=== PATIENT | male | born 1965 | race Caucasian/White ===

== ENCOUNTER 2017-03-25 16:11 | Inpatient (IN) | payer OTHER ==
[~2017-03-25] VITALS: Ht 170.2 cm; Wt 106.3 kg
[~2017-03-25 16:11] MED LIST: ATEN-173 PO; ATOR-26 PO; FLV1 PO; FLX5 PO; LISI-461 PO; OXYC-57 PO; SUCR1TAB PO; THM100 PO
[2017-03-25] MEDS ORDERED: KETOROLAC TROMETHAMINE 30 MG/ML VIAL IV STA (16:32)
[2017-03-25] MEDS ORDERED: ESCI1TAB10 PO (16:40)
[2017-03-25] MEDS ORDERED: ASPI81TA28 PO (16:40)
[2017-03-25] MEDS ORDERED: LISI-725 PO (16:40)
[2017-03-25] MEDS ORDERED: CHOL2000 PO (16:40)
[2017-03-25 16:53] LABS: BASO % 0.6 %; BASO ABS # 0.04 K/uL (0-0.2); COMPLETE YES; HEMATOCRIT 48.2 % (42-52); IG% 0.3 %; LYMPH % 17.6 %; LYMPH ABS # 1.19 K/uL (1.2-3.4); MEAN CELL VOLUME 89.9 fL (80-100); MEAN CORPUSCULAR HGB CONC 34.4 g/dl (32-36); MEAN PLATELET VOLUME 10.3 fL (7.4-10.4); MONO % 8.6 %; NEUT % 71.9 %; PLATELET COUNT 235 K/uL (130-400); RED BLOOD COUNT 5.36 M/uL (4.7-6.1); WHITE BLOOD COUNT 6.78 K/uL (4.8-10.8)
[2017-03-25 17:10] LABS: BUN/CREATININE RATIO 13.6 (10-20); CALCIUM 8.9 mg/dl (8.5-10.1); CREATININE 0.98 mg/dl (0.60-1.40); POTASSIUM 4.2 mmol/L (3.5-5.1)
--- NOTE | 2017-03-25 17:31 | DIAGNOSTIC IMAGING REPORT ---
LUMBAR SPINE CT CT DOSE: 1028.89 mGy.cm HISTORY: Pain LBP eval for fx TECHNIQUE: Multiaxial CT images of the lumbar spine were performed and reformatted in the sagittal and coronal plane without the use of contrast. COMPARISON: 09/16/2014 FINDINGS: Vertebral body stature is normal. No evidence for compression deformity. Intervertebral this are well-preserved. Moderate expansion of several neural nerve root and neural foraminal regions bilaterally. 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 IMPRESSION: No acute process. Chronic changes which have been described previously and appear unchanged. Electronically signed by: Morro Huston M.D. 03/25/2017 5:29 PM Dictated Date/Time: 03/25/2017 5:27 PM
[2017-03-25] MEDS ORDERED: MoRPHine SULFATE 4 MG/ML 1 ML CARP\\VIAL IV STA (17:40)
[2017-03-25] MEDS ORDERED: ONDANSETRON INJ 2 MG/ML 2 ML VIAL IV STA (17:40)
[2017-03-25] MEDS ORDERED: LIDODERM (LIDOCAINE) PATCH 5% TD ONE (19:17)
[2017-03-25 19:20] VITALS: Ht 170.2 cm; Wt 106.3 kg
[2017-03-25] MEDS ORDERED: ACETAMINOPHEN 325 MG TAB PO PRN (19:30)
[2017-03-25] MEDS ORDERED: SODIUM CHLORIDE 0.9% 1000ML 1,000 ML IV SCH (19:30)
[2017-03-25] MEDS ORDERED: ONDANSETRON INJ 2 MG/ML 2 ML VIAL IV PRN (19:30)
[2017-03-25] MEDS ORDERED: KETOROLAC TROMETHAMINE 30 MG/ML VIAL IV PRN (19:30)
[2017-03-25] MEDS ORDERED: MoRPHine SULFATE 4 MG/ML 1 ML CARP\\VIAL IV PRN (19:30)
--- NOTE | 2017-03-25 19:44 | History and Physical ---
History & Physical Date & Time of Service: Mar 25, 2017 at 19:31 Chief Complaint: Back Pain Primary Care Physician: No Doctor, Assigned History of Present Illness Source: patient, family, clinic records, hospital records 51 year old male with history of Hypertension, and other problems noted below presenting with sudden onset back pain. Patient was at his baseline until this afternoon. After cleaning the house with vacuum and mopping, patient had a sudden onset low back pain- severe, to the point that he had to sit down and crawl to a chair. Pain is non radiating, no leg weakness/numbness, incontinence, worse with movement. The pain persisted and patient could not ambulate at all due to pain, hence ambulance was called. At the ER, CT spine did not show any acute changes. Patient was given Toradol and Morphine IV but still without significant relief. On exam, patient alert, pleasant. Denies .lower back pain when he is still but would have severe pain with slight movement. No chest pain, dyspnea, palpitations, dizziness. Denies other symptoms. Family History Father heart disease Social History Smoking Status: Former Smoker Smokeless Tobacco Use: No Drug Use: none Marital Status: Housing status: lives with family Occupational Status: employed Multi-Drug Resistant Organisms History of MDRO: No Allergies Coded Allergies: No Known Allergies (Unverified , 03/25/17) Home Medications Scheduled Aspirin (Aspirin Ec), 81 MG PO DAILY Atenolol (Tenormin), 25 MG PO HS Atorvastatin (Lipitor), 80 MG PO HS Cholecalciferol (Vitamin D3), 5,000 INTER.UNIT PO DAILY Escitalopram Oxalate (Lexapro), 20 MG PO HS Lisinopril (Zestril), 20 MG PO DAILY Review of Systems Constitutional- no fever; no weight loss Eyes- no acute visual changes ENT- no sinus drainage; no pharyngitis Pulmonary- no cough, no wheezing, no shortness of breath Cardiac- no chest pain, no palpitations, no orthopnea, no dependent edema GI- no nausea, no vomiting, no diarrhea, no melena, no hematochezia - no dysuria, no hematuria Musculoskeletal- no arthralgias, no myalgias Derm- no rashes, no new skin lesions, no changing skin lesions Hematologic- no unusual bruising, no unusual bleeding Lymphatics- no adenopathy Endocrine- no polyuria or polydipsia; no heat or cold intolerance Neuro- no headaches, no focal neurologic symptoms Psych- no anxiety, no depression Physical Exam Vital Signs Date Time Temp Pulse Resp B/P (MAP) Pulse Ox O2 Delivery O2 Flow Rate FiO2 03/25/17 18:51 66 18 146/89 97 Room Air 03/25/17 17:45 65 20 137/88 97 Room Air 03/25/17 16:36 64 03/25/17 16:19 36.8 68 20 145/99 97 Room Air General Appearance: WD/WN, no apparent distress Head: normocephalic, atraumatic Eyes: normal inspection, EOMI, sclerae normal ENT: normal ENT inspection, hearing grossly normal, pharynx normal Neck: supple, no adenopathy, thyroid normal, no JVD, trachea midline Respiratory/Chest: chest non-tender, lungs clear, normal breath sounds, no respiratory distress, no accessory muscle use Cardiovascular: regular rate, rhythm, no edema, no JVD, no murmur Abdomen/GI: normal bowel sounds, non tender, soft Back: + pertinent finding (no examined as patient was having severe pain with minimal movement) Extremities/Musculoskelatal: normal inspection, no calf tenderness, normal capillary refill, no pedal edema 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 nml as tested, no motor/sensory deficits, alert, normal mood/affect, oriented x 3 Skin: normal color, warm/dry, no rash Lymphatic: no adenopathy Diagnostics Laboratory Results Results Past 24 Hours Test 03/25/17 16:40 Range/Units White Blood Count 6.78 4.8-10.8 K/uL Red Blood Count 5.36 4.7-6.1 M/uL Hemoglobin 16.6 14.0-18.0 g/dL Hematocrit 48.2 42-52 % Mean Corpuscular Volume 89.9 80-100 fL Mean Corpuscular Hemoglobin 31.0 25-34 pg Mean Corpuscular Hemoglobin Concent 34.4 32-36 g/dl Platelet Count 235 130-400 K/uL Mean Platelet Volume 10.3 7.4-10.4 fL Neutrophils (%) (Auto) 71.9 % Lymphocytes (%) (Auto) 17.6 % Monocytes (%) (Auto) 8.6 % Eosinophils (%) (Auto) 1.0 % Basophils (%) (Auto) 0.6 % Neutrophils # (Auto) 4.88 1.4-6.5 K/uL Lymphocytes # (Auto) 1.19 1.2-3.4 K/uL Monocytes # (Auto) 0.58 0.11-0.59 K/uL Eosinophils # (Auto) 0.07 0-0.5 K/uL Basophils # (Auto) 0.04 0-0.2 K/uL RDW Standard Deviation 40.5 36.4-46.3 fL RDW Coefficient of Variation 12.3 11.5-14.5 % Immature Granulocyte % (Auto) 0.3 % Immature Granulocyte # (Auto) 0.02 0.00-0.02 K/uL Sodium Level 139 136-145 mmol/L Potassium Level 4.2 3.5-5.1 mmol/L Chloride Level 105 98-107 mmol/L Carbon Dioxide Level 25 21-32 mmol/L Anion Gap 9.0 3-11 mmol/L Blood Urea Nitrogen 13 7-18 mg/dl Creatinine 0.98 0.60-1.40 mg/dl Est Creatinine Clear Calc Drug Dose 101.3 ml/min Estimated GFR () 101.6 Estimated GFR (Non- 87.7 BUN/Creatinine Ratio 13.6 10-20 Random Glucose 109 70-99 mg/dl Calcium Level 8.9 8.5-10.1 mg/dl Diagnostic Radiology CT spine IMPRESSION: No acute process. Chronic changes which have been described previously and appear unchanged. Impression Assessment and Plan 51 year old male with history of Hypertension, and other problems noted below presenting with sudden onset back pain. ACUTE LOW BACK PAIN -- was admitted in 2015 for similar presentation -- possible muscular strain, vs. radiculopathy, herniated disc -- MRI lumbar spine ordered -- Lidoderm patch PRN Flexeril, Toradol, Morphine IV fluids PT/OT -- will consult Ortho Spine- Dr. Arias who saw the patient in 2015 during his last admission HYPERTENSION - on Atenolol, Lisinopril DEPRESSION HISTORY - on Escitalopram DVT prophylaxis SCDs for now Full code per patient Dispo pending PT/OT eval ordered lives with follows with Dr. Pittman for PCP VTE Prophylaxis VTE Risk Assessment Done? Y/N: Yes Risk Level: Moderate
[2017-03-25 19:45] VITALS: BP 108/74; PULSE 58; TEMP 36.9; O2SAT 96
--- NOTE | 2017-03-25 21:52 | DIAGNOSTIC IMAGING REPORT ---
LUMBAR SPINE MRI HISTORY: Back pain low back pain TECHNIQUE: Multiplanar multisequence MRI of the lumbar spine was performed without the use of contrast. COMPARISON: 09/16/2014 FINDINGS: For the purpose of the report the L5-S1 disc space will be located on axial image 27 of 30. Diffuse enlargement of the exiting nerve roots at all impression all levels of lumbar region. Based on the sagittal images this appearance is similar as compared to the prior study. Considerations include dural ectasia versus neurofibromas at the exiting nerve root levels. Signal characteristics the vertebral bodies are unremarkable. There is mild disc desiccation throughout. L1-L2: Prominence of the exiting nerve roots. No disc herniation. L2-L3: Prominence again the exiting nerve roots. Broad-based bulging disc and a left central position. No change from the prior study. L3-L4: Enlarged exiting nerve roots again similar compared to the prior study. L4-L5: Nerve roots again are enlarged. No change from the prior exam. L5-S1: No change in the prior study. Enlarged exiting nerve roots. IMPRESSION: 1. Soft tissue enlargement of the exiting nerve roots at all levels of the lumbar region. 2. This is consistent with the patient's history of neurofibromatosis, possibly combined with a component of dural ectasia. 3. No change from the prior exam dated 09/16/2014 Electronically signed by: Morro Huston M.D. 03/25/2017 9:50 PM Dictated Date/Time: 03/25/2017 9:44 PM
[2017-03-25] MEDS: ATORVASTATIN 40 MG TAB PO SCH (21:54)
[2017-03-25] MEDS: ESCITALOPRAM OXALATE 20 MG TAB PO SCH (21:55)
[2017-03-25] MEDS: CYCLOBENZAPRINE HCL 5 MG TAB PO PRN (22:35)
[2017-03-25 23:00] VITALS: BP 122/76; PULSE 71; TEMP 37; O2SAT 94
[2017-03-26 06:06] LABS: BASO % 0.7 %; BASO ABS # 0.05 K/uL (0-0.2); COMPLETE YES; EOS % 1.6 %; HEMATOCRIT 45.7 % (42-52); IG% 0.3 %; LYMPH % 22.8 %; LYMPH ABS # 1.67 K/uL (1.2-3.4); MEAN CORPUSCULAR HEMOGLOBIN 30.5 pg (25-34); MEAN CORPUSCULAR HGB CONC 33.5 g/dl (32-36); MEAN PLATELET VOLUME 10.3 fL (7.4-10.4); MONO % 12.7 %; NEUT % 61.9 %; PLATELET COUNT 234 K/uL (130-400); RED BLOOD COUNT 5.02 M/uL (4.7-6.1); WHITE BLOOD COUNT 7.32 K/uL (4.8-10.8)
[2017-03-26 06:37] LABS: BUN/CREATININE RATIO 14.8 (10-20); CALCIUM 8.5 mg/dl (8.5-10.1); POTASSIUM 3.8 mmol/L (3.5-5.1)
[2017-03-26 07:17] VITALS: BP 115/77; PULSE 62; TEMP 37; O2SAT 90
[2017-03-26] MEDS: LIDODERM (LIDOCAINE) PATCH 5% TD SCH ×3 (07:39→12:45)
[2017-03-26] MEDS: LISINOPRIL 20 MG TAB PO SCH (07:40)
--- NOTE | 2017-03-26 08:43 | CONSULTATION REPORT ---
DATE OF CONSULTATION: 03/26/2017 DATE OF CONSULTATION: 03/26/2017. CHIEF COMPLAINT: Lower back pain. HISTORY OF PRESENT ILLNESS: The patient is a 51-year-old male whom we had seen approximately 2 years ago for consultation with a similar episode. Yesterday, he was just mopping the floor in a bedroom, watching it dry and turned causing acute pain in his back to the point he could not stand. They had to call an ambulance to get him out of the house. He was brought to the Emergency Room. He still is having significant amount of pain in the back itself, it is in the mid portion of the lower back. Not going into the buttock or legs. No radiating pain, no electrical shocks, no major injuries that he can recall. He was given medications in the Emergency Room, they are unable to adequately control his pain and he was admitted for pain control. He denies any other numbness, tingling or paresthesias, any change in bladder or bowel function. PAST MEDICAL HISTORY: Significant for hypertension, episodic low back pain. MEDICATIONS: Include aspirin, atenolol, Lipitor, vitamin D, Lexapro, and Zestril. ALLERGIES: He has no listed drug allergies. SOCIAL HISTORY: The patient denies smoking although it is reported he is a former smoker. He is and lives with his family and is employed. REVIEW OF SYSTEMS: Is recorded in the patient's medical history. PHYSICAL EXAMINATION: On exam the patient is alert and oriented, answers questions appropriately. He has difficulties rolling from side to side. Lower extremity motor exam reveals no focal atrophy. Strength and sensation both intact. With range of motion of the hips and knees he has some increased back pain but nothing radiating down the legs, no nerve root tension signs. He has no masses or lesions in the back itself. RADIOGRAPHIC IMAGES: MRI of the lumbar spine performed is available for review. This reveals degenerative disc disease primarily at L5-S1 and to a lesser degree at L2-3. There are no large disc herniations or significant neural foraminal compromise. He does have enlarging of the nerve roots throughout consistent with neurofibromatosis. Compared to his films from 2015 there are very few changes. ASSESSMENT: Acute episode of lower back pain. PLAN: At this point, I would recommend PT/OT, possible muscle relaxers to help keep him comfortable. I believe this will be self-limiting episode and does not need any specific surgical intervention. If over the next 24 hours, things not improved possible pain management consult would be considered. There is no indication for any type of surgical approach at this point. I will review the films with Dr. Arias and make sure there is no difference in opinion. Please contact us with any other concerns.
--- NOTE | 2017-03-26 09:47 | EMERGENCY ROOM VISIT NOTE ---
History Report prepared by José Manuel: Demarcus Malone Under the Supervision of: Dr. Edgar Harkins M.D. First contact with patient: 16:26 Chief Complaint: BACK PAIN Stated Complaint: BACK PAIN History of Present Illness The patient is a 51 year old male who presents to the Emergency Room via EMS with complaints of sharp, mid-lower back pain that began today. He was cleaning his house today which included mopping and vacuuming. All of the sudden, the pain began, and he dropped to the floor. While at rest, the patient does not experience the pain in his back. However, when he moves, he experiences the pain. The pain does not radiate down his legs. He denies any fever, vomiting, abdominal pain, numbness, weakness, or loss of bowel/bladder. He notes that this has happened to him in the past. At that time, he received a CT and MRI scan. He was told that his ganglion fibers were inflamed. He was given antiinflammatories and pain medication. He was given IV Fentanyl en route, and notes some nausea associated with this. He Source of History: patient Onset: today Position: back (lower) Symptom Intensity: mild Quality: sharp Timing: intermittent Modifying Factors (Worsening): movement Modifying Factors (Relieving): rest Associated Symptoms: + nausea, No fevers, No vomiting, No abdominal pain, No urinary symptoms, No weakness, No numbness Review of Systems See HPI for pertinent positives & negatives. A total of 10 systems reviewed and were otherwise negative. Past Medical & Surgical Medical Problems: (1) Back pain (2) Hypertension Nos (3) Neurofibromatosis, Unspecified Family History Omitted secondary to age. Social History Smoking Status: Former Smoker Alcohol Use: occasionally Marital Status: Occupation Status: employed Current/Historical Medications Scheduled Aspirin (Aspirin Ec), 81 MG PO DAILY Atenolol (Tenormin), 25 MG PO HS Atorvastatin (Lipitor), 80 MG PO HS Cholecalciferol (Vitamin D3), 5,000 INTER.UNIT PO DAILY Escitalopram Oxalate (Lexapro), 20 MG PO HS Lisinopril (Zestril), 20 MG PO DAILY Allergies Coded Allergies: No Known Allergies (Unverified , 03/25/17) Physical Exam Vital Signs Date Time Temp Pulse Resp B/P (MAP) Pulse Ox O2 Delivery O2 Flow Rate FiO2 03/25/17 17:45 65 20 137/88 97 Room Air 03/25/17 16:36 64 03/25/17 16:19 36.8 68 20 145/99 97 Room Air Physical Exam Constitutional: Vital signs reviewed. Eyes: Pupils are equal round reactive to light. Conjunctiva are noninjected. ENT: Pharynx is clear without erythema or exudate. Mucous membranes are moist. Neck supple without meningeal signs. Respiratory: Clear to auscultation bilaterally. Breath sounds are equal bilaterally. Cardiovascular: Regular rate and rhythm. No rubs or gallops. GI: Soft, nondistended and nontender. Bowel sounds are present. Musculoskeletal: No peripheral edema. No lower extremity tenderness. Integumentary: No cyanosis. Neurological: The patient is awake and alert. No focal deficits. Motor and sensation intact throughout the lower extremities. Psychiatric: Normal affect. Medical Decision & Procedures ER Provider Diagnostic Interpretation: Radiology results as stated below per my review and the radiologist's interpretation: LUMBAR SPINE CT CT DOSE: 1028.89 mGy.cm HISTORY: Pain LBP eval for fx TECHNIQUE: Multiaxial CT images of the lumbar spine were performed and reformatted in the sagittal and coronal plane without the use of contrast. COMPARISON: 09/16/2014 FINDINGS: Vertebral body stature is normal. No evidence for compression deformity. Intervertebral this are well-preserved. Moderate expansion of several neural nerve root and neural foraminal regions bilaterally. 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 IMPRESSION: No acute process. Chronic changes which have been described previously and appear unchanged. Electronically signed by: Morro Huston M.D. 03/25/2017 5:29 PM Dictated Date/Time: 03/25/2017 5:27 PM Laboratory Results Laboratory results as reviewed by me. Medications Administered Medications (Trade) Dose Ordered Sig/Oracio Route Start Time Stop Time Status Last Admin Dose Admin Ketorolac Tromethamine (Toradol Inj) 10 mg NOW STAT IV 03/25/17 16:32 03/25/17 16:34 DC 03/25/17 16:57 10 MG Morphine Sulfate (MoRPHine SULFATE INJ) 4 mg NOW STAT IV 03/25/17 17:40 03/25/17 17:41 DC 03/25/17 17:45 4 MG Ondansetron HCl (Zofran Inj) 4 mg NOW STAT IV 03/25/17 17:40 03/25/17 17:41 DC 03/25/17 17:45 4 MG ED Course 1626: The patient was evaluated in room C10. A complete history and physical exam was performed. 163: Ordered Toradol Inj 10 mg IV 1738: I reevaluated the patient at this time. He does not experience the pain as long as he stays still, but with slight movement, the pain is exacerbated. 1740: Ordered Zofran Inj 4 mg IV, Morphine Sulfate 4 mg IV 1759: The shoe caser was unable to place the patient into a rehabilitation center. We will be paging [facility] for further management. 180: I spoke with Dr. Yosef Garsia Hospitalist, about the patient's case. They will be evaluating them for further care. Medical Decision This is a 51-year-old male who presents with low back pain. Differential diagnosis includes lumbar disc disease, strain, spinal stenosis, cauda equina syndrome, pathologic fracture. I did perform a limited focused review of portions of the patient's old chart on the electronic medical record. The patient had a MRI of his back in 2013. It showed that he had disc protrusions at L2 and L3. Blood Pressure Screening: Patient was found to have an elevated blood pressure and was referred to their primary doctor for recheck and further treatment. Medication Reconciliation: I attest that I have personally reviewed the patient' s current medication list. I did evaluate the patient as noted above. The patient has a history of prior intervertebral disc disease. He has had similar pain in the past. He denies any trauma today. He states that his pain is improved after receiving IV fentanyl from the ambulance crew. He is neurologically intact and has no signs of spinal cord involvement or cauda equina syndrome. He states that his pain is only present if he tries to move. I did treat him with IV Toradol. I did order and review the patient's blood work as noted in the electronic medical record. I did order a CT of the lumbar spine. I did review the images myself as well as the radiology report as described above. There is no evidence of acute fracture or dislocation. I did reevaluate the patient. He feels he cannot go home because he is unable to move without severe pain. He feels he cannot get into his car or walk up the steps. I did treat him with morphine IV. He feels he needs to be hospitalized for further care as he had the same problem years ago. I therefore discuss case with the shoe caser and hospitalist for further care and evaluation. Consults Time Called: 1800 Consulting Physician: Dr. Yosef Garsia Hospitalist Returned Call: [phone] They will be evaluating the patient for further management and care. Impression Primary Impression: Intractable back pain Scribe Attestation The scribe's documentation has been prepared under my direct and personally reviewed by me in its entirety. I confirm that the note above accurately reflects all work, treatment, procedures, and medical decision making performed by me. Departure Information Dispostion Being Evaluated By Hospitalist Referrals No Doctor, Assigned (PCP) Patient Instructions My [facility]
[2017-03-26 15:29] VITALS: BP 109/71; PULSE 65; TEMP 36.9; O2SAT 95
[2017-03-26 15:48] VITALS: BP 117/66; PULSE 76; O2SAT 98
--- NOTE | 2017-03-26 20:18 | Progress Note ---
Medicine Progress Note Date & Time of Visit: Mar 26, 2017 at 20:13. Subjective patient seen resting in bedside chair appears more comfortable states back pain is more tolerable today able to do PT at bedside no weakness, paresthesias, incontinence no other symptoms Objective Last 8 Hrs Date Time Temp Pulse Resp B/P (MAP) Pulse Ox O2 Delivery O2 Flow Rate FiO2 03/26/17 15:48 76 98 03/26/17 15:35 Room Air 03/26/17 15:29 36.9 65 18 109/71 (84) 95 Room Air Physical Exam: General- oriented x 3, not in distress, speaks in sentences with no effort Eyes- EOMI, anicteric Neck- supple, no JVD Lungs- clear to auscultation bilaterally Heart- regular rhythm; no murmur, normal rate Abdomen- normal bowel sounds, soft, nontender Extremities- no pretibial edema, no calf tenderness Neuro- alert, oriented x 3; no gross focal deficits Skin- warm & dry Laboratory Results: Last 24 Hours Test 03/26/17 05:15 White Blood Count 7.32 K/uL Red Blood Count 5.02 M/uL Hemoglobin 15.3 g/dL Hematocrit 45.7 % Mean Corpuscular Volume 91.0 fL Mean Corpuscular Hemoglobin 30.5 pg Mean Corpuscular Hemoglobin Concent 33.5 g/dl Platelet Count 234 K/uL Mean Platelet Volume 10.3 fL Neutrophils (%) (Auto) 61.9 % Lymphocytes (%) (Auto) 22.8 % Monocytes (%) (Auto) 12.7 % Eosinophils (%) (Auto) 1.6 % Basophils (%) (Auto) 0.7 % Neutrophils # (Auto) 4.53 K/uL Lymphocytes # (Auto) 1.67 K/uL Monocytes # (Auto) 0.93 K/uL Eosinophils # (Auto) 0.12 K/uL Basophils # (Auto) 0.05 K/uL RDW Standard Deviation 42.0 fL RDW Coefficient of Variation 12.4 % Immature Granulocyte % (Auto) 0.3 % Immature Granulocyte # (Auto) 0.02 K/uL Sodium Level 142 mmol/L Potassium Level 3.8 mmol/L Chloride Level 106 mmol/L Carbon Dioxide Level 27 mmol/L Anion Gap 9.0 mmol/L Blood Urea Nitrogen 15 mg/dl Creatinine 1.00 mg/dl Est Creatinine Clear Calc Drug Dose 99.3 ml/min Estimated GFR () 99.2 Estimated GFR (Non- 85.5 BUN/Creatinine Ratio 14.8 Random Glucose 92 mg/dl Calcium Level 8.5 mg/dl Hepatitis C Antibody Screen NEG Assessment & Plan 51 year old male with history of Hypertension, and other problems noted below presenting with sudden onset back pain. ACUTE LOW BACK PAIN -- was admitted in 2014 for similar presentation -- possible muscular strain, vs. radiculopathy -- MRI lumbar spine: IMPRESSION: 1. Soft tissue enlargement of the exiting nerve roots at all levels of the lumbar region. 2. This is consistent with the patient's history of neurofibromatosis, possibly combined with a component of dural ectasia. 3. No change from the prior exam dated 09/16/2014 -- improving gradually -- continue Lidoderm patch PRN Flexeril, Toradol, Morphine IV fluids PT/OT -- start transitioning to PO analgesics Senokot S daily -- Ortho Spine consulted, appreciate the input HYPERTENSION - stable - on Atenolol, Lisinopril DEPRESSION HISTORY - on Escitalopram DVT prophylaxis Heparin scds Full code per patient Dispo pending PT/OT eval ordered lives with follows with Dr. Pittman for PCP Current Inpatient Medications: Current Inpatient Medications Medications (Trade) Dose Ordered Sig/Oracio Route Start Time Stop Time Status Last Admin Dose Admin Cyclobenzaprine HCl (Flexeril Tab) 5 mg TID PRN PO 03/25/17 19:30 04/24/17 19:29 03/25/17 22:35 5 MG Lidocaine (Lidoderm Patch 5%) 1 patch QAM TD 03/26/17 09:00 04/25/17 08:59 03/26/17 12:45 1 PATCH Miscellaneous (Remove Lidoderm Patch) 1 ea DAILY@0800 N/A 03/26/17 08:00 04/25/17 07:59 03/26/17 12:44 1 EA Ketorolac Tromethamine (Toradol Inj) 30 mg Q6H PRN IV 03/25/17 19:30 03/30/17 19:29 Morphine Sulfate (MoRPHine SULFATE INJ) 3 mg Q4H PRN IV 03/25/17 19:30 04/08/17 19:29 03/26/17 11:32 3 MG Atenolol (Tenormin Tab) 25 mg HS PO 03/25/17 21:00 04/24/17 20:59 03/25/17 21:54 25 MG Atorvastatin Calcium (Lipitor Tab) 80 mg HS PO 03/25/17 21:00 04/24/17 20:59 03/25/17 21:54 80 MG Escitalopram Oxalate (Lexapro Tab) 20 mg HS PO 03/25/17 21:00 04/24/17 20:59 03/25/17 21:55 20 MG Lisinopril (Zestril Tab) 20 mg DAILY PO 03/26/17 09:00 04/25/17 08:59 03/26/17 07:40 20 MG Acetaminophen (Tylenol Tab) 650 mg Q4H PRN PO 03/25/17 19:30 04/24/17 19:29 Ondansetron HCl (Zofran Inj) 4 mg Q6H PRN IV 03/25/17 19:30 04/24/17 19:29
[2017-03-26] MEDS ORDERED: HYDROCODONE/ACETAMOPHEN 5/325MG TAB PO PRN (20:30)
[2017-03-26] MEDS: ATORVASTATIN 40 MG TAB PO SCH (20:45)
[2017-03-26] MEDS: ESCITALOPRAM OXALATE 20 MG TAB PO SCH (20:45)
[2017-03-26 21:23] LABS: INR 1.1 (0.9-1.1); PROTHROMBIN TIME (PATIENT) 11.3 SECONDS (9.0-12.0)
[2017-03-26] MEDS: HEPARIN SOD 5000 UNIT/0.5 ML CARP SQ SCH (22:08)
[2017-03-26 23:08] VITALS: BP 124/68; PULSE 66; TEMP 37; O2SAT 91
[2017-03-27] MEDS: HEPARIN SOD 5000 UNIT/0.5 ML CARP SQ SCH ×2 (05:31→14:04)
[2017-03-27 06:55] LABS: BASO % 0.5 %; BASO ABS # 0.04 K/uL (0-0.2); COMPLETE YES; EOS % 1.6 %; HEMATOCRIT 48.1 % (42-52); IG% 0.3 %; LYMPH ABS # 1.57 K/uL (1.2-3.4); MEAN CELL VOLUME 92.3 fL (80-100); MEAN CORPUSCULAR HEMOGLOBIN 30.9 pg (25-34); MEAN CORPUSCULAR HGB CONC 33.5 g/dl (32-36); MEAN PLATELET VOLUME 10.5 fL (7.4-10.4); MONO % 11.5 %; NEUT % 65.1 %; PLATELET COUNT 226 K/uL (130-400); RED BLOOD COUNT 5.21 M/uL (4.7-6.1); WHITE BLOOD COUNT 7.46 K/uL (4.8-10.8)
[2017-03-27] MEDS: LIDODERM (LIDOCAINE) PATCH 5% TD SCH (07:10)
[2017-03-27] MEDS: DOCUSATE SODIUM/SENNA 50/8.6MG TAB PO SCH ×2 (07:10→07:15)
[2017-03-27] MEDS: LISINOPRIL 20 MG TAB PO SCH (07:10)
[2017-03-27] MEDS: CYCLOBENZAPRINE HCL 5 MG TAB PO PRN (07:16)
[2017-03-27 07:20] VITALS: BP 141/86; PULSE 60; TEMP 36.6; O2SAT 96
[2017-03-27 07:29] LABS: BUN/CREATININE RATIO 13.9 (10-20); CREATININE 0.94 mg/dl (0.60-1.40)
[2017-03-27 14:51] VITALS: BP 127/77; PULSE 60; TEMP 36.8; O2SAT 96
[2017-03-27] MEDS: NAPROXEN 250 MG TAB PO SCH (18:21)
--- NOTE | 2017-03-27 20:51 | Progress Note ---
Medicine Progress Note Date & Time of Visit: Mar 27, 2017 at 1700. Subjective 51 year old male with history of Hypertension, and other problems noted below presenting with sudden onset back pain. Pt states symptoms occured spontaneoulsy while doing house chores. EMS to ER as he couldn't ambulate at all. No other neurologic compromise was noted such as incontinence or urinary retention. Pt states he doesn't know if the flexeril is helping. He is tolerating PO. He does feel fine with rest and was able to ambulate with a walker with PT assist twice around the hallway today,. Objective Last 8 Hrs Date Time Temp Pulse Resp B/P (MAP) Pulse Ox O2 Delivery O2 Flow Rate FiO2 03/27/17 16:20 Room Air 03/27/17 14:51 36.8 60 18 127/77 (94) 96 Room Air Physical Exam: GEN: WNWD, in acute distress when he moves slightly in bed but is able to slowly get up into the chair on his own, alert and appropriate HEENT: NC/AT, pupils are equal and round bilaterally, normal sclerae, MMM BACK: no paraspinal muscle TTP, no gluteal/piriformis TTP. CARDIO: reg rate, S1/2 heard without m/g/r, no LE swelling or edema LUNGS: CTA bilaterally, no crackles, rales or wheezes, good diaphragmatic excursion ABD: soft, non-tender, non-distended, no rebound or guarding, +BS EXTREMITY: RP and DP palpable 2+ bilat, extremities are warm and well-perfused NEURO: CN 2-12 grossly intact, sensation intact throughout, 2/4 knee reflex bilaterally. +SLR on the right, - on the left. Able to stand up on his own. MUSC: 5/5 strength knee flexion/extension, arianna adduction/abduction, plantar and dorsiflexion. SKIN: warm and dry Laboratory Results: 03/27/17 05:52 Red Blood Count 5.21, Mean Corpuscular Volume 92.3, Mean Corpuscular Hemoglobin 30.9, Mean Corpuscular Hemoglobin Concent 33.5, Mean Platelet Volume 10.5, Neutrophils (%) (Auto) 65.1, Lymphocytes (%) (Auto) 21.0, Monocytes (%) (Auto) 11.5, Eosinophils (%) (Auto) 1.6, Basophils (%) (Auto) 0.5, Neutrophils # (Auto ) 4.85, Lymphocytes # (Auto) 1.57, Monocytes # (Auto) 0.86, Eosinophils # (Auto ) 0.12, Basophils # (Auto) 0.04 03/27/17 05:52 Test 03/26/17 05:15 03/26/17 21:02 03/27/17 05:52 Hepatitis C Antibody Screen NEG (NEG) Prothrombin Time 11.3 SECONDS (9.0-12.0) Prothromb Time International Ratio 1.1 (0.9-1.1) White Blood Count 7.46 K/uL (4.8-10.8) Red Blood Count 5.21 M/uL (4.7-6.1) Hemoglobin 16.1 g/dL (14.0-18.0) Hematocrit 48.1 % (42-52) Mean Corpuscular Volume 92.3 fL (80-100) Mean Corpuscular Hemoglobin 30.9 pg (25-34) Mean Corpuscular Hemoglobin Concent 33.5 g/dl (32-36) Platelet Count 226 K/uL (130-400) Mean Platelet Volume 10.5 fL (7.4-10.4) Neutrophils (%) (Auto) 65.1 % Lymphocytes (%) (Auto) 21.0 % Monocytes (%) (Auto) 11.5 % Eosinophils (%) (Auto) 1.6 % Basophils (%) (Auto) 0.5 % Neutrophils # (Auto) 4.85 K/uL (1.4-6.5) Lymphocytes # (Auto) 1.57 K/uL (1.2-3.4) Monocytes # (Auto) 0.86 K/uL (0.11-0.59) Eosinophils # (Auto) 0.12 K/uL (0-0.5) Basophils # (Auto) 0.04 K/uL (0-0.2) RDW Standard Deviation 41.7 fL (36.4-46.3) RDW Coefficient of Variation 12.3 % (11.5-14.5) Immature Granulocyte % (Auto) 0.3 % Immature Granulocyte # (Auto) 0.02 K/uL (0.00-0.02) Anion Gap 5.0 mmol/L (3-11) Est Creatinine Clear Calc Drug Dose 105.7 ml/min Estimated GFR () 106.9 Estimated GFR (Non- 92.2 BUN/Creatinine Ratio 13.9 (10-20) Calcium Level 9.0 mg/dl (8.5-10.1) Last 24 Hours Test 03/26/17 21:02 03/27/17 05:52 Prothrombin Time 11.3 SECONDS Prothromb Time International Ratio 1.1 White Blood Count 7.46 K/uL Red Blood Count 5.21 M/uL Hemoglobin 16.1 g/dL Hematocrit 48.1 % Mean Corpuscular Volume 92.3 fL Mean Corpuscular Hemoglobin 30.9 pg Mean Corpuscular Hemoglobin Concent 33.5 g/dl Platelet Count 226 K/uL Mean Platelet Volume 10.5 fL Neutrophils (%) (Auto) 65.1 % Lymphocytes (%) (Auto) 21.0 % Monocytes (%) (Auto) 11.5 % Eosinophils (%) (Auto) 1.6 % Basophils (%) (Auto) 0.5 % Neutrophils # (Auto) 4.85 K/uL Lymphocytes # (Auto) 1.57 K/uL Monocytes # (Auto) 0.86 K/uL Eosinophils # (Auto) 0.12 K/uL Basophils # (Auto) 0.04 K/uL RDW Standard Deviation 41.7 fL RDW Coefficient of Variation 12.3 % Immature Granulocyte % (Auto) 0.3 % Immature Granulocyte # (Auto) 0.02 K/uL Sodium Level 140 mmol/L Potassium Level 4.0 mmol/L Chloride Level 105 mmol/L Carbon Dioxide Level 30 mmol/L Anion Gap 5.0 mmol/L Blood Urea Nitrogen 13 mg/dl Creatinine 0.94 mg/dl Est Creatinine Clear Calc Drug Dose 105.7 ml/min Estimated GFR () 106.9 Estimated GFR (Non- 92.2 BUN/Creatinine Ratio 13.9 Random Glucose 93 mg/dl Calcium Level 9.0 mg/dl Assessment & Plan 51 year old male with history of Hypertension, and other problems noted below presenting with sudden onset back pain. 1. Acute lower back pain-likely 2/2 strain. 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 For now, he is improving with conservative therapy but is still hesitant to move; not taking PRNs because there is no pain at rest. Will institute some scheduled Diazepam and Naproxen to calm the inflammation and then ultimately get him moving and functional, able to go home. He will then need to undertake an outpatient exercise regimen to strengthen core abdominal and back muscles. We discussed the whole plan for this today. If this cannot be controlled may need to consider pain management or neurosurgical consult. PT/OT to continue to work with him. 2. HTN-controlled, cont atemolol and lisinopril. Monitor renal function daily on the ACEI/NSAID combination. 3. Depression-controlled, cont Lexapro 4. Ambulatory dysfunction 2/2 above. Cont per plan above. DVT prophylaxis: change heparin to Lovenox. Full code per patient Dispo-cont [facility] Consultants: Ortho, PT Current Inpatient Medications: Current Inpatient Medications Medications (Trade) Dose Ordered Sig/Oracio Route Start Time Stop Time Status Last Admin Dose Admin Lidocaine (Lidoderm Patch 5%) 1 patch QAM TD 03/26/17 09:00 04/25/17 08:59 03/27/17 07:10 1 PATCH Miscellaneous (Remove Lidoderm Patch) 1 ea DAILY@0800 N/A 03/26/17 08:00 04/25/17 07:59 03/27/17 18:27 1 EA Ketorolac Tromethamine (Toradol Inj) 30 mg Q6H PRN IV 03/25/17 19:30 03/30/17 19:29 Future Hold Morphine Sulfate (MoRPHine SULFATE INJ) 3 mg Q4H PRN IV 03/25/17 19:30 04/08/17 19:29 03/26/17 11:32 3 MG Atenolol (Tenormin Tab) 25 mg HS PO 03/25/17 21:00 04/24/17 20:59 03/26/17 20:45 25 MG Atorvastatin Calcium (Lipitor Tab) 80 mg HS PO 03/25/17 21:00 04/24/17 20:59 03/26/17 20:45 80 MG Escitalopram Oxalate (Lexapro Tab) 20 mg HS PO 03/25/17 21:00 04/24/17 20:59 03/26/17 20:45 20 MG Lisinopril (Zestril Tab) 20 mg DAILY PO 03/26/17 09:00 04/25/17 08:59 03/27/17 07:10 20 MG Acetaminophen (Tylenol Tab) 650 mg Q4H PRN PO 03/25/17 19:30 04/24/17 19:29 03/26/17 20:46 650 MG Ondansetron HCl (Zofran Inj) 4 mg Q6H PRN IV 03/25/17 19:30 04/24/17 19:29 Heparin Sodium (Porcine) (Heparin Sq 5000 Unit/0.5ml) 5,000 unit Q8 SQ 03/26/17 22:00 04/25/17 21:59 03/27/17 14:04 5,000 UNIT Acetaminophen/ Hydrocodone Bitart ([place] 5/325 Tab) 1 tab Q4H PRN PO 03/26/17 20:30 04/09/17 20:29 Senna/Docusate Sodium (Senokot S Tab) 1 tab QAM PO 03/27/17 09:00 04/26/17 08:59 Naproxen (Naprosyn Tab) 500 mg Q12H PO 03/27/17 18:00 04/26/17 17:59 03/27/17 18:21 500 MG Diazepam (Valium Tab) 5 mg TID PO 03/27/17 21:00 04/26/17 20:59
[2017-03-27] MEDS: ESCITALOPRAM OXALATE 20 MG TAB PO SCH (21:16)
[2017-03-27] MEDS: ATORVASTATIN 40 MG TAB PO SCH (21:16)
[2017-03-27] MEDS: DIAZEPAM 5MG TAB PO SCH (21:19)
[2017-03-27 23:06] VITALS: BP 114/75; PULSE 66; TEMP 36.9; O2SAT 93
[2017-03-28] MEDS: NAPROXEN 250 MG TAB PO SCH ×2 (05:36→17:57)
[2017-03-28 06:32] VITALS: BP 111/75; PULSE 60; TEMP 36.4; O2SAT 94
[2017-03-28 08:02] LABS: BUN/CREATININE RATIO 14.4 (10-20); CREATININE 1.2 mg/dl (0.60-1.40); POTASSIUM 3.9 mmol/L (3.5-5.1)
[2017-03-28 08:43] VITALS: BP 108/70; PULSE 73; O2SAT 93
[2017-03-28] MEDS: DOCUSATE SODIUM/SENNA 50/8.6MG TAB PO SCH (09:00)
[2017-03-28] MEDS: LISINOPRIL 20 MG TAB PO SCH (09:25)
[2017-03-28] MEDS: LIDODERM (LIDOCAINE) PATCH 5% TD SCH (09:26)
[2017-03-28] MEDS: ENOXAPARIN 40 MG/0.4 ML SYR SQ SCH (09:26)
[2017-03-28] MEDS: DIAZEPAM 5MG TAB PO SCH ×3 (09:30→21:31)
[2017-03-28 15:29] VITALS: BP 120/78; PULSE 75; TEMP 36.8; O2SAT 95
[2017-03-28 21:25] VITALS: BP 118/69; PULSE 76
[2017-03-28] MEDS: ATORVASTATIN 40 MG TAB PO SCH (21:27)
[2017-03-28] MEDS: ESCITALOPRAM OXALATE 20 MG TAB PO SCH (21:27)
[2017-03-28 22:55] VITALS: BP 107/70; PULSE 76; TEMP 37; O2SAT 92
--- NOTE | 2017-03-28 22:57 | Progress Note ---
Medicine Progress Note Date & Time of Visit: Mar 28, 2017 at 1600. Subjective 51 year old male with history of Hypertension, and other problems noted below presenting with sudden onset back pain. -did well with PT today-was able to climb some stairs -improved on the valium/NSAIDs course -tolerating PO -mentating well Objective Last 8 Hrs Date Time Temp Pulse Resp B/P (MAP) Pulse Ox O2 Delivery O2 Flow Rate FiO2 03/28/17 21:25 76 118/69 (85) 03/28/17 15:29 36.8 75 16 120/78 (92) 95 Room Air 03/28/17 15:15 Room Air Physical Exam: GEN: WNWD, NAD, sitting comfortable at bedside HEENT: NC/AT, pupils are equal and round bilaterally, normal sclerae, MMM CARDIO: reg rate, S1/2 heard without m/g/r, no LE swelling or edema LUNGS: CTA bilaterally, no crackles, rales or wheezes, good diaphragmatic excursion ABD: soft, non-tender, non-distended, no rebound or guarding, +BS EXTREMITY: RP and DP palpable 2+ bilat, extremities are warm and well-perfused NEURO: CN 2-12 grossly intact, sensation intact throughout. -SLR on the right, - on the left. MUSC: 5/5 strength knee flexion/extension, arianna adduction/abduction, plantar and dorsiflexion. SKIN: warm and dry Laboratory Results: 03/27/17 05:52 Red Blood Count 5.21, Mean Corpuscular Volume 92.3, Mean Corpuscular Hemoglobin 30.9, Mean Corpuscular Hemoglobin Concent 33.5, Mean Platelet Volume 10.5, Neutrophils (%) (Auto) 65.1, Lymphocytes (%) (Auto) 21.0, Monocytes (%) (Auto) 11.5, Eosinophils (%) (Auto) 1.6, Basophils (%) (Auto) 0.5, Neutrophils # (Auto ) 4.85, Lymphocytes # (Auto) 1.57, Monocytes # (Auto) 0.86, Eosinophils # (Auto ) 0.12, Basophils # (Auto) 0.04 03/28/17 07:12 Test 03/26/17 05:15 03/26/17 21:02 03/27/17 05:52 03/28/17 07:12 Hepatitis C Antibody Screen NEG (NEG) Prothrombin Time 11.3 SECONDS (9.0-12.0) Prothromb Time International Ratio 1.1 (0.9-1.1) White Blood Count 7.46 K/uL (4.8-10.8) Red Blood Count 5.21 M/uL (4.7-6.1) Hemoglobin 16.1 g/dL (14.0-18.0) Hematocrit 48.1 % (42-52) Mean Corpuscular Volume 92.3 fL (80-100) Mean Corpuscular Hemoglobin 30.9 pg (25-34) Mean Corpuscular Hemoglobin Concent 33.5 g/dl (32-36) Platelet Count 226 K/uL (130-400) Mean Platelet Volume 10.5 fL (7.4-10.4) Neutrophils (%) (Auto) 65.1 % Lymphocytes (%) (Auto) 21.0 % Monocytes (%) (Auto) 11.5 % Eosinophils (%) (Auto) 1.6 % Basophils (%) (Auto) 0.5 % Neutrophils # (Auto) 4.85 K/uL (1.4-6.5) Lymphocytes # (Auto) 1.57 K/uL (1.2-3.4) Monocytes # (Auto) 0.86 K/uL (0.11-0.59) Eosinophils # (Auto) 0.12 K/uL (0-0.5) Basophils # (Auto) 0.04 K/uL (0-0.2) RDW Standard Deviation 41.7 fL (36.4-46.3) RDW Coefficient of Variation 12.3 % (11.5-14.5) Immature Granulocyte % (Auto) 0.3 % Immature Granulocyte # (Auto) 0.02 K/uL (0.00-0.02) Anion Gap 7.0 mmol/L (3-11) Est Creatinine Clear Calc Drug Dose 82.8 ml/min Estimated GFR () 79.5 Estimated GFR (Non- 68.6 BUN/Creatinine Ratio 14.4 (10-20) Calcium Level 9.0 mg/dl (8.5-10.1) Last 24 Hours Test 03/28/17 07:12 Sodium Level 138 mmol/L Potassium Level 3.9 mmol/L Chloride Level 104 mmol/L Carbon Dioxide Level 27 mmol/L Anion Gap 7.0 mmol/L Blood Urea Nitrogen 17 mg/dl Creatinine 1.20 mg/dl Est Creatinine Clear Calc Drug Dose 82.8 ml/min Estimated GFR () 79.5 Estimated GFR (Non- 68.6 BUN/Creatinine Ratio 14.4 Random Glucose 101 mg/dl Calcium Level 9.0 mg/dl Assessment & Plan 51 year old male with history of Hypertension, and other problems noted below presenting with sudden onset back pain. 1. Acute lower back pain-likely 2/2 strain. 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 For now, he is improving with conservative therapy--improved on scheduled Diazepam and NSAIDs. He will need to undertake an outpatient exercise regimen to strengthen core abdominal and back muscles. We discussed the whole plan for this. PT/OT to continue to work with him. 2. HTN-controlled, cont atenolol and lisinopril. Monitor renal function daily on the ACEI/NSAID combination. 3. Depression-controlled, cont Lexapro 4. Ambulatory dysfunction 2/2 above. Cont per plan above. DVT prophylaxis: Lovenox. Full code per patient Dispo-cont med/surg DO [facility] Hospitalist Consultants: Ortho, PT Current Inpatient Medications: Current Inpatient Medications Medications (Trade) Dose Ordered Sig/Oracio Route Start Time Stop Time Status Last Admin Dose Admin Lidocaine (Lidoderm Patch 5%) 1 patch QAM TD 03/26/17 09:00 04/25/17 08:59 03/28/17 09:26 1 PATCH Miscellaneous (Remove Lidoderm Patch) 1 ea DAILY@0800 N/A 03/26/17 08:00 04/25/17 07:59 03/27/17 18:27 1 EA Ketorolac Tromethamine (Toradol Inj) 30 mg Q6H PRN IV 03/25/17 19:30 03/30/17 19:29 Future Hold Morphine Sulfate (MoRPHine SULFATE INJ) 3 mg Q4H PRN IV 03/25/17 19:30 04/08/17 19:29 03/26/17 11:32 3 MG Atenolol (Tenormin Tab) 25 mg HS PO 03/25/17 21:00 04/24/17 20:59 03/28/17 21:27 25 MG Atorvastatin Calcium (Lipitor Tab) 80 mg HS PO 03/25/17 21:00 04/24/17 20:59 03/28/17 21:27 80 MG Escitalopram Oxalate (Lexapro Tab) 20 mg HS PO 03/25/17 21:00 04/24/17 20:59 03/28/17 21:27 20 MG Lisinopril (Zestril Tab) 20 mg DAILY PO 03/26/17 09:00 04/25/17 08:59 03/28/17 09:25 20 MG Acetaminophen (Tylenol Tab) 650 mg Q4H PRN PO 03/25/17 19:30 04/24/17 19:29 03/26/17 20:46 650 MG Ondansetron HCl (Zofran Inj) 4 mg Q6H PRN IV 03/25/17 19:30 04/24/17 19:29 Acetaminophen/ Hydrocodone Bitart ([place] 5/325 Tab) 1 tab Q4H PRN PO 03/26/17 20:30 04/09/17 20:29 Senna/Docusate Sodium (Senokot S Tab) 1 tab QAM PO 03/27/17 09:00 04/26/17 08:59 Naproxen (Naprosyn Tab) 500 mg Q12H PO 03/27/17 18:00 04/26/17 17:59 03/28/17 17:57 500 MG Diazepam (Valium Tab) 5 mg TID PO 03/27/17 21:00 04/26/17 20:59 03/28/17 21:31 5 MG Enoxaparin Sodium (Lovenox Inj) 40 mg QAM SQ 03/28/17 09:00 04/27/17 08:59 03/28/17 09:26 40 MG
[2017-03-29] MEDS: NAPROXEN 250 MG TAB PO SCH (05:44)
[2017-03-29 06:21] LABS: BASO % 0.4 %; BASO ABS # 0.03 K/uL (0-0.2); COMPLETE YES; EOS % 2.4 %; HEMATOCRIT 46.2 % (42-52); IG% 0.4 %; LYMPH % 20.8 %; LYMPH ABS # 1.41 K/uL (1.2-3.4); MEAN CELL VOLUME 91.5 fL (80-100); MEAN CORPUSCULAR HEMOGLOBIN 30.7 pg (25-34); MEAN CORPUSCULAR HGB CONC 33.5 g/dl (32-36); MEAN PLATELET VOLUME 10.1 fL (7.4-10.4); MONO % 13.3 %; NEUT % 62.7 %; PLATELET COUNT 228 K/uL (130-400); RED BLOOD COUNT 5.05 M/uL (4.7-6.1); WHITE BLOOD COUNT 6.77 K/uL (4.8-10.8)
[2017-03-29 06:49] LABS: POTASSIUM 4.1 mmol/L (3.5-5.1)
[2017-03-29 06:59] VITALS: BP 115/75; PULSE 65; TEMP 36.7; O2SAT 93
[2017-03-29] MEDS: LIDODERM (LIDOCAINE) PATCH 5% TD SCH (08:15)
[2017-03-29] MEDS: DOCUSATE SODIUM/SENNA 50/8.6MG TAB PO SCH (08:15)
[2017-03-29] MEDS: LISINOPRIL 20 MG TAB PO SCH (08:44)
[2017-03-29] MEDS: DIAZEPAM 5MG TAB PO SCH ×2 (08:44→13:43)
[2017-03-29] MEDS: ENOXAPARIN 40 MG/0.4 ML SYR SQ SCH (08:44)
[2017-03-29] MEDS ORDERED: VLM5 PO (09:55)
[2017-03-29] MEDS ORDERED: LDDP5 TD (09:55)
[2017-03-29] MEDS ORDERED: NAPR500T3 PO (09:55)
[2017-03-29 10:20] VITALS: BP 115/75; PULSE 65; TEMP 36.7; O2SAT 93
--- NOTE | 2017-03-29 13:31 | Discharge Instructions ---
Discharge Instructions Date of Service Mar 29, 2017. Admission Reason for Admission: Back Pain Discharge Discharge Diagnosis / Problem: Back pain Discharge Goals Goal(s): Prevent Disease Progression Activity Recommendations Activity Limitations: per Instructions/Follow-up section . Instructions / Follow-Up Instructions / Follow-Up Please take all medications as prescribed above. You have a followup with Dr. Damon at the [facility] Primary Care office on 04/06 @ 1045. At this appointment please discuss getting involved in an outpatient PT program to strengthen your back and prevent further injury. It was a pleasure taking care of you! Call if you have any questions or problems. You can reach a [facility] hospitalist on duty at [facility] 24 hours a day by calling [phone]. Take care of yourself. Olimpia Rush DO [facility] Hospitalist Current Hospital Diet Patient's current hospital diet: AHA Diet (Heart Healthy) Discharge Diet Recommended Diet: AHA Diet (Heart Healthy) Procedures Procedures Performed: None. Pending Studies Studies pending at discharge: no Medical Emergencies . Who to Call and When: Medical Emergencies: If at any time you feel your situation is an emergency, please call 911 immediately. . Non-Emergent Contact Non-Emergency issues call your: Primary Care Provider . . "Provider Documentation" section prepared by Olimpia Rush. . VTE Core Measure Inpt VTE Proph given/why not?: Enoxaparin (Lovenox)SQ
--- NOTE | 2017-03-29 13:43 | Discharge Summary ---
Discharge Summary Date of Service Mar 29, 2017. Discharge Summary Admission Date: Mar 28, 2017 at 09:01 Discharge Date: Mar 29, 2017 Discharge Disposition: Home Principal Diagnosis: Acute lower back pain HTN Depression Ambulatory Dysfunction Procedures: None. Vaccinations: None. Consultations: Ortho, PT Pending Studies/Follow-Up: see instructions below Medication Reconciliation New Medications: Diazepam (Diazepam) 5 Mg Tab 5 MG PO TID for 7 Days, #21 TAB Lidocaine (Lidocaine) 1 Patch Tdsy 1 PATCH TD QAM for 7 Days, #7 PATCH 1 Refill Naproxen (Naproxen) 500 Mg Tab 1 TAB PO BID for 7 Days, #14 TAB 1 Refill Continued Medications: Aspirin (Aspirin Ec) 81 Mg Tab 81 MG PO DAILY Atenolol (Tenormin) 25 Mg Tab 25 MG PO HS Atorvastatin (Lipitor) 80 Mg Tab 80 MG PO HS Cholecalciferol (Vitamin D3) 2,000 Unit Cap 5000 INTER.UNIT PO DAILY, CAP Escitalopram Oxalate (Lexapro) 20 Mg Tab 20 MG PO HS, TAB Lisinopril (Zestril) 20 Mg Tab 20 MG PO DAILY, TAB Admission Information HPI (per Admitting provider): 51 year old male with history of Hypertension, and other problems noted below presenting with sudden onset back pain. Patient was at his baseline until this afternoon. After cleaning the house with vacuum and mopping, patient had a sudden onset low back pain- severe, to the point that he had to sit down and crawl to a chair. Pain is non radiating, no leg weakness/numbness, incontinence, worse with movement. The pain persisted and patient could not ambulate at all due to pain, hence ambulance was called. At the ER, CT spine did not show any acute changes. Patient was given Toradol and Morphine IV but still without significant relief. On exam, patient alert, pleasant. Denies .lower back pain when he is still but would have severe pain with slight movement. No chest pain, dyspnea, palpitations, dizziness. Denies other symptoms. Physical Exam (per Admitting): General Appearance: WD/WN, no apparent distress Head: normocephalic, atraumatic Eyes: normal inspection, EOMI, sclerae normal ENT: normal ENT inspection, hearing grossly normal, pharynx normal Neck: supple, no adenopathy, thyroid normal, no JVD, trachea midline Respiratory/Chest: chest non-tender, lungs clear, normal breath sounds, no respiratory distress, no accessory muscle use Cardiovascular: regular rate, rhythm, no edema, no JVD, no murmur Abdomen/GI: normal bowel sounds, non tender, soft Back: + pertinent finding (no examined as patient was having severe pain with minimal movement) Extremities/Musculoskelatal: normal inspection, no calf tenderness, normal capillary refill, no pedal edema Neurologic/Psych: spiral gear generator II-XII nml as tested, no motor/sensory deficits, alert , normal mood/affect, oriented x 3 Skin: normal color, warm/dry, no rash Lymphatic: no adenopathy Hospital Course 51 year old male with history of Hypertension, and other problems noted below presenting with sudden onset back pain. 1. Acute lower back pain-likely 2/2 strain. 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 For now, he is improving with conservative therapy--improved on scheduled Diazepam and NSAIDs. He will need to undertake an outpatient exercise regimen to strengthen core abdominal and back muscles. We discussed the whole plan for this. PT/OT to continue to work with him. 2. HTN-controlled, cont atenolol and lisinopril. Monitor renal function daily on the ACEI/NSAID combination. 3. Depression-controlled, cont Lexapro 4. Ambulatory dysfunction 2/2 above. Cont per plan above. By day of discharge he was cleared by PT and OT to go home without assistance. He was tolerating PO and was hemodynamically stable with an improvement in his pain on admission. Total time spent on discharge = 60 minutes This includes examination of the patient, discharge planning, medication reconciliation, and communication with other providers. Discharge Instructions Discharge Instructions Date of Service Mar 29, 2017. Admission Reason for Admission: Back Pain Discharge Discharge Diagnosis / Problem: Back pain Discharge Goals Goal(s): Prevent Disease Progression Activity Recommendations Activity Limitations: per Instructions/Follow-up section . Instructions / Follow-Up Instructions / Follow-Up Please take all medications as prescribed above. You have a followup with Dr. Damon at the [facility] Primary Care office on 04/06 @ 8209. At this appointment please discuss getting involved in an outpatient PT program to strengthen your back and prevent further injury. It was a pleasure taking care of you! Call if you have any questions or problems. [facility] 24 hours a day by calling [phone]. Take care of yourself. Olimpia Rush, DO [facility] Additional Copies To Morro Damon M.D.
== END 2017-03-29 14:15 | disposition home or self-care (01) | DRG 563 ==
LOC: EDBD 16:11 → C.EDC 16:12 → C.MSW 18:07 → ENRESERV 18:39 → OBSVTOIN 03-28 09:01
PROVIDERS: ADMIT Internal Medicine; ATTEND Hospitalist
DX: S39.012A Strain of muscle, fascia and tendon of lower back, initial encounter (principal); X50.0XXA Overexertion from strenuous movement or load, initial encounter; Y92.009 Unspecified place in unspecified non-institutional (private) residence as the place of occurrence of the external cause; R26.2 Difficulty in walking, not elsewhere classified; I10 Essential (primary) hypertension; Q85.00 Neurofibromatosis, unspecified; F32.9 Major depressive disorder, single episode, unspecified; Z87.891 Personal history of nicotine dependence; Z79.82 Long term (current) use of aspirin; Z79.899 Other long term (current) drug therapy